=== PATIENT | male | born 1985 | race African-American/Black ===

== ENCOUNTER 2016-05-21 22:59 | Emergency (ER) | payer SELFPAY ==
[~2016-05-21] VITALS: Ht 177.8 cm; Wt 74.4 kg
[2016-05-21 23:56] VITALS: BP 103/73
[2016-05-21 23:59] VITALS: BP 99/60
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
== END 2016-05-22 | disposition home or self-care (01) ==
LOC: EMR 23:14
DX: M79.5 Residual foreign body in soft tissue (principal)
CPT/HCPCS: 99281